=== PATIENT | female | born 1940 ===

== ENCOUNTER → 2024-08-07 | Day surgery (SDC) | payer MEDICARE ==
[~2024-08-07] VITALS: Ht 152.4 cm; Wt 50.8 kg
[~2024-08-07] MED LIST: ALPRAZOLAM0.5 M3 PO; ATROPINE SULFATE 1% 2 ML BOTTLE ONE; ATROPINE SULFATE 1% 2 ML BOTTLE OPH SCH; Balanced Salt Solution 500 ML OPH SCH; Cefuroxime Sodium 5 MG in BALANCED SALT IRRIG SOLN NO.2 0.5 ML,SYRINGE, DISPOSABLE, 10 ... IO SCH; Cyclopentolate Hydrochloride 1% 2 ML BOTTLE OPH ONE; Cyclopentolate Hydrochloride 1% 2 ML BOTTLE OPH SCH; DICLOFENAC SOD75 MG PO; DICYCLOMINE HYD10 MG PO; ESTRADIOL0.5 MG PO; LACTULOSE10 GM/151 PO; LEVOTHYROXINE50 MCG PO; Midazolam Hydrochloride 2 MG/2 ML VIAL IV ONE; OFLOXACIN 0.3% 5 ML BOTTLE ONE; OFLOXACIN 0.3% 5 ML BOTTLE OPH SCH; PANTOPRAZOLE SO40 MG PO; PHENYLEPHRINE/KETOROLAC 4 ML in Balanced Salt Solution 500 ML OPH SCH; POVIDONE IODINE 5% OPHTHALMIC 30 ML BOTTLE OPH ONE; POVIDONE IODINE 5% OPHTHALMIC 30 ML BOTTLE OPH SCH; Phenylephrine Hydrochloride 2 ML BOT OPH ONE; Phenylephrine Hydrochloride 2 ML BOT OPH SCH; Proparacaine Hydrochloride 15 ML BOT OPH ONE; Proparacaine Hydrochloride 15 ML BOT OPH SCH; ROSUVASTATIN CA40 MG PO; SODIUM CHLORIDE 0.9% 1,000 ML IV SCH; TROPICAMIDE 3 ML BOT OPH ONE; TROPICAMIDE 3 ML BOT OPH SCH; Tetracaine Hydrochloride 0.5% 4 ML BOT OPH ONE; Tetracaine Hydrochloride 0.5% 4 ML BOT OPH SCH; prednisoLONE acetate 1% OPHTHALMIC 5 ML BOT ONE; prednisoLONE acetate 1% OPHTHALMIC 5 ML BOT OPH SCH
[2024-08-07 11:40] VITALS: BP 190/92
[2024-08-07 12:24] VITALS: BP 118/79
[2024-08-07 12:39] VITALS: BP 149/92
[2024-08-07 12:54] VITALS: BP 164/80
== END | disposition home or self-care (01) ==
LOC: SDC 08-02 12:30
PROVIDERS: ATTEND Ophthalmology
DX: H25.11 Age-related nuclear cataract, right eye (principal); K21.9 Gastro-esophageal reflux disease without esophagitis; I25.2 Old myocardial infarction; F17.210 Nicotine dependence, cigarettes, uncomplicated; Z90.710 Acquired absence of both cervix and uterus; Z96.651 Presence of right artificial knee joint; Z98.890 Other specified postprocedural states; Z79.890 Hormone replacement therapy; Z79.899 Other long term (current) drug therapy

== ENCOUNTER → 2024-09-04 | Day surgery (SDC) | payer MEDICARE ==
[~2024-09-04] VITALS: Ht 152.4 cm; Wt 50.8 kg
[~2024-09-04] MED LIST changes: -POVIDONE IODINE 5% OPHTHALMIC 30 ML BOTTLE OPH ONE
[2024-09-04 07:45] VITALS: BP 174/83
[2024-09-04 09:41] VITALS: BP 168/83
[2024-09-04 09:56] VITALS: BP 182/83
[2024-09-04 10:09] VITALS: BP 181/91
== END | disposition home or self-care (01) ==
LOC: SDC 09-02 10:15
PROVIDERS: ATTEND Ophthalmology
DX: H25.12 Age-related nuclear cataract, left eye (principal); K21.9 Gastro-esophageal reflux disease without esophagitis; I25.2 Old myocardial infarction; E07.9 Disorder of thyroid, unspecified; Z90.710 Acquired absence of both cervix and uterus; Z98.890 Other specified postprocedural states; Z79.890 Hormone replacement therapy; Z79.82 Long term (current) use of aspirin; Z79.899 Other long term (current) drug therapy